=== PATIENT | female | born 1975 | race Caucasian/White ===

== ENCOUNTER 2020-07-22 09:07 | Outpatient (CLI) | payer OTHER, BC, SELFPAY ==
[2020-07-22 09:31] LABS: Hematocrit 37.8 % (37.0-47.0); Hemoglobin 11.9 g/dL (12.0-15.0)
== END 2020-07-22 09:08 | disposition home or self-care (01) ==
LOC: ANHSURGERY 09:13
PROVIDERS: Anesthesiology; PCP Family Medicine; Visit Provider Surgery Plastic and Reconstructive Surgery
DX: M79.3 Panniculitis, unspecified (principal); D64.9 Anemia, unspecified
CPT/HCPCS: 36415; 85014; 85018; 86850; 86900; 86901

== ENCOUNTER → 2020-07-26 00:08 | Outpatient (CLI) | payer OTHER, BC, SELFPAY ==
[2020-07-26 19:33] LABS: SARS-CoV-2 RNA PCR Negative
== END ==
PROVIDERS: PCP Family Medicine; Visit Provider Surgery Plastic and Reconstructive Surgery
DX: Z01.812 Encounter for preprocedural laboratory examination (principal); Z20.822 Contact with and (suspected) exposure to COVID-19
CPT/HCPCS: C9803; U0003; U0005

== ENCOUNTER 2020-07-29 01:18 | Day surgery (SDC) | payer OTHER, BC, SELFPAY ==
[2020-07-21 15:20] VITALS: BMI 35.7
[2020-07-29] VITALS (11 sets, daily range): BP systolic 118–161; BP diastolic 60–93; PULSE 61–99; RESP 14–19; TEMP 36.4–37.2; O2SAT 94–100; BMI 35.9
--- NOTE | 2020-07-29 05:54 | ECG_ITS ---
Measurements Intervals [place] Rate: 62 P: 16 NH: 138 QRS: 25 QRSD: 85 T: 32 QT: 432 QTc: 439 Interpretive Statements SINUS RHYTHM WITH SINUS ARRHYTHMIA NORMAL ECG Electronically Signed On 07-29-2020 8:26:21 DECAL CUTTER by Ivan Toro D.O.
[2020-07-29] MEDS: LACTATED RINGERS 1,000 ML 30 ML IV CONT ×2 (06:44→09:27)
[2020-07-29 06:49] LABS: Urine Cotinine NEGATIVE
--- NOTE | 2020-07-29 06:49 | WPDHPUPDATE1 ---
History and Physical Update Update Date/Time: 07/29/20 06:49 History and Physical has been reviewed, including an updated exam of the patient. There are NO changes in the patient's condition. Risks, benefits, and alternatives have been discussed and questions answered. Patient agrees to proceed with procedure.
--- NOTE | 2020-07-29 06:56 | P.OP_ITS ---
Procedure Note - Detailed Date of procedure: 07/29/20 Pre-op diagnosis: panniculitis Post-op diagnosis: same Procedure performed: Panniculectomy Description of procedure: Preoperatively the risks, benefits, alternatives were discussed again today in extensive detail. I want her to be realistic about the risks involved as well as expectations. Compared and contrasted this versus an abdominoplasty so she was well informed that this is not a cosmetic procedure. All questions answered to her satisfaction and consent obtained. Standing position at thorough abdominal examination was completed. She was marked in the preoperative holding area. This was with her verification. She was taken to the operating room placed supine on the operating room table. Anesthesia provided by anesthesiology and prepped and draped in a standard steri le fashion. Surgical time-out was taken. A thorough abdominal examination again was completed this time supine. No hernias were palpable. Stab incisions were made and used a tumescent solution. Once adequate time for hemostasis a 10 blade used to make the lower incision. Dissection was continued taking wedge of this lower abdomen out. There is no evidence fascial violation or deep structure injury. I closed in many layers to obliterate all space using 2-0 Vicryl. I placed 10 Kamari drains bilateral which was sutured in place with 3-0 nylon. I then closed using a 3-0 strata fix and jareth. Dressings were placed. She was awoke and taken to the PACU without difficulty. All instrument sponge counts were correct at the end of the case. Anesthesia: GETA Surgeon: Rey Milian MD Estimated blood loss (mL): 50 Drains: Yes (Bilateral Kamari) Packing: No Pathology: none sent Complications: No immediate complications Condition: stable Disposition: PACU Findings: Tissue removed 2952 grams
--- NOTE | 2020-07-29 07:15 | WPDANESEPPF ---
Anes - Initial Pre Proc Eval Procedure: Operation Date: 07/29/20 07:30 Proposed Procedures p Panniculectomy - Rey Milian MD Date/Time: 07/29/20 07:15 Surgeon: Rey Milian MD Pre Op Diagnosis: panniculitis Patient Data Age: 45 Gender: F Height: 5 ft 7 in Weight: 104 kg Last Vital Signs Temp 97.9 F 07/29/20 06:28 Pulse 80 07/29/20 06:28 Resp 18 07/29/20 06:28 BP 151/92 H 07/29/20 06:28 Pulse Ox 100 07/29/20 06:28 Allergies Allergy/AdvReac Type Severity Reaction Status Date / Time avocado Allergy Unknown THROAT Verified 07/29/20 06:14 SWELLING luke Allergy Other Verified 07/29/20 06:14 hydrocodone AdvReac Mild Nausea and Verified 07/29/20 06:14 Vomiting propoxyphene AdvReac Mild Nausea and Verified 07/29/20 06:14 Vomiting oxycodone AdvReac Unknown Nausea and Verified 07/29/20 06:14 Vomiting Home Medications Medication Instructions Recorded Confirmed Type losartan 100 mg tablet 100 mg PO DAILY tablet 03/04/20 07/29/20 History metoprolol succinate 50 mg 50 mg PO DAILY 03/04/20 07/29/20 History tablet,extended release 24 hr ondansetron HCl 4 mg tablet 4 mg PO Q6H PRN #30 tablet 07/14/20 07/21/20 Rx tramadol 50 mg tablet 50 mg PO Q6H PRN #15 tablet 07/14/20 07/21/20 Rx Laboratory Tests 07/29/20 06:27 Cotinine Negative Patient hx anesthesia problems: post op nausea/vomiting Family hx anesthesia problems: none PMFSH Surgical History Surgical History History of delivery 2004, 2007, 2013 History of gastric surgery gastric sleeve 2017 History of hernia repair double - 2014 History of hysterectomy 2018 History of tonsillectomy 5th grade Family History Family History Father Hypertension Mother History of cancer Sibling Hypertension Other Asthma Diabetes mellitus Family history of cardiovascular disease Family history of malignant neoplasm Social History Social History Smoking status: Never smoker Alcohol intake: current Substance use: never Substance use type: does not use Living arrangements: with family Spiritual care concerns: No Anes - Eval Final PreProcedure Day of Procedure 07/29/20 07:15 Patient weight: obese Heart: regular rate and rhythm Lungs: clear to auscultation Airway: Mallampati scale class II Neurological: alert and oriented Last oral intake: >/= 8 hours ASA classification: III Emergent: no Anesthetic plan: proceed Anesthesia type and monitoring: general ETT and standard monitoring Informed Consent: The patient's anesthetic plan and its attendant risks and benefits were discussed with the patient/family/POA. Questions were solicited and answers provided to the satisfaction of the patient/family/POA.
[2020-07-29] MEDS: SCOPOLAMINE 1.5 MG PATCH TRANSDERM (07:22)
[2020-07-29] MEDS: ceFAZolin 2 GM/D5W 50 ML 2 GM/50 ML BAG IVPB (07:31)
--- NOTE | 2020-07-29 09:09 | SUR.OPER ---
EBL 50ml
--- NOTE | 2020-07-29 09:46 | SUR.OPER ---
total tumescent used bag 1 1000ml, bag 2 277ml.
[2020-07-29] MEDS: MORPHINE SULFATE (*CRX) 2 MG/ML INJ IV PUSH ×2 (10:44→17:59)
[2020-07-29] MEDS: LACTATED RINGERS 1,000 ML 125 ML IV CONT (10:47)
[2020-07-29] MEDS: traMADol HCL (*CRX) 50 MG TABLET PO ×3 (11:28→21:45)
[2020-07-29] MEDS: DOCUSATE SODIUM 100 MG CAPSULE PO (21:45)
[2020-07-30] VITALS: BP 117/76; PULSE 65; RESP 18; TEMP 37.1; O2SAT 98
[2020-07-30] MEDS: traMADol HCL (*CRX) 50 MG TABLET PO ×2 (03:44→08:34)
[2020-07-30 03:45] VITALS: BP 151/90; PULSE 72; RESP 20; TEMP 36.9; O2SAT 99
--- NOTE | 2020-07-30 07:15 | WPDPN ---
Progress Note: A&P Assessment and Plan (1) Panniculitis: Code(s): M79.3 - Panniculitis, unspecified Status: Acute Assessment and Plan: Will discharge home. We will see her back. She is going to keep us updated with her drain outputs. Today we spent extensive time going over the care. What monitor for. Answering all of her questions to her satisfaction. (2) History of gastric surgery: Code(s): Z98.890 - Other specified postprocedural states Status: Acute Review of Systems Review of Systems: All systems reviewed & are unremarkable except as noted in HPI and below Exam Narrative: Exam Narrative: Abdomen is doing well. No signs of infection. No hematoma. No seroma. Drains are becoming serosanguineous. No calf tenderness. Negative Homans. Const: General: comfortable, no acute distress, alert and awake; No acute distress Orientation/consciousness: oriented to person HENMT: Head: normal to inspection Resp: Effort & Inspection: normal respiratory effort and able to speak in complete sentences Neuro: General: oriented to person Psych: Appearance: grossly normal Mental Status: mental status grossly normal Objective Data Vital Signs Vital Signs: Vital Signs - 24 hr 07/29/20 09:26 07/29/20 09:41 07/29/20 09:56 Temperature 36.4 C Pulse Rate 99 84 84 Respiratory Rate 19 17 17 Blood Pressure 158/88 H 161/92 H 160/91 H Pulse Oximetry 100 100 97 07/29/20 10:11 07/29/20 10:35 07/29/20 10:45 Temperature 36.6 C Pulse Rate 73 75 Respiratory Rate 17 18 Blood Pressure 154/93 H 133/79 Pulse Oximetry 95 94 97 07/29/20 12:20 07/29/20 13:00 07/29/20 16:30 Temperature 37.2 C 36.5 C Pulse Rate 61 67 Respiratory Rate 18 14 Blood Pressure 121/79 118/60 Pulse Oximetry 97 97 97 07/29/20 19:00 07/30/20 00:00 07/30/20 03:45 Temperature 36.7 C 37.1 C 36.9 C Pulse Rate 70 65 72 Respiratory Rate 18 18 20 Blood Pressure 118/75 117/76 151/90 H Pulse Oximetry 96 98 99 Intake/Output Intake/Output: Intake & Output 02/2307/28/20 07/29/20 07/30/20 23:59 23:59 23:59 23:59 Intake Total 1870 600 Output Total 178 1700 Balance 82 -1100 Meds/Results Medications: Active Medications Generic Name Dose Route Start Last Admin Trade Name Freq PRN Reason Stop Dose Admin Docusate Sodium 100 mg 07/29/20 21:00 07/29/20 21:45 Docusate Sodium 100 Mg Capsule PO 100 mg Q12HR BLANCO Administration Enoxaparin Sodium 40 mg 07/30/20 09:00 Enoxaparin 40 Mg/0.4 Ml Syringe SUB-Q DAILY [facility] Losartan Potassium 100 mg 07/30/20 09:00 Losartan Potassium 100 Mg Tablet PO DAILY [facility] Metoprolol Succinate 50 mg 07/30/20 09:00 Metoprolol Succinate Ext Rel 50 Mg Tabcr PO DAILY [facility] Morphine Sulfate 2 mg 07/29/20 09:12 07/29/20 17:59 Morphine Sulfate (*Crx) 2 Mg/Ml Inj IV PUSH 2 mg Q2H PRN Administration Pain Ondansetron HCl 4 mg 07/29/20 09:12 Ondansetron Inj 4 Mg/2 Ml Vial IV PUSH Q6H PRN Nausea Tramadol HCl 50 mg 07/29/20 09:13 07/30/20 03:44 Tramadol Hcl (*Crx) 50 Mg Tablet PO 50 mg Q4H PRN Administration Pain Rated 4-6 Subjective Date/time seen: 07/30/20 07:15 She states that she is doing very well today. Pain controlled. No fevers or chills. No nausea vomiting. No shortness of breath. No calf tenderness.
--- NOTE | 2020-07-30 07:19 | PM.DS ---
DS: Admitting Diagnosis Admitting Diagnosis Admitting Diagnosis: Panniculitis DS: Discharge Diagnosis Discharge Diagnosis (1) Panniculitis: Code(s): M79.3 - Panniculitis, unspecified Status: Acute DS: Summary Hospital Course Hospital Course: Patient underwent panniculectomy uneventfully. She was kept overnight for pain control. He has done very well. She is ambulating. Tolerating regular diet. Pain controlled. She has elected to use ambulation at home for DVT prophylaxis. We will see her back. She is going to keep us updated with her drain outputs. Time Spent with Patient Time attestation: Total time spent providing and/or coordinating discharge services: Exam Narrative: Exam Narrative: Abdomen is doing well. No signs of infection. No hematoma. No seroma. Drains are becoming serosanguineous. No calf tenderness. Negative Homans. Const: General: comfortable, no acute distress, alert and awake; No acute distress Orientation/consciousness: oriented to person HENMT: Head: normal to inspection Resp: Effort & Inspection: normal respiratory effort and able to speak in complete sentences Neuro: General: oriented to person Psych: Appearance: grossly normal Mental Status: mental status grossly normal Discharge Plan Discharge Patient Disposition: Home, Self-Care Discharge Instructions: POST OPERATIVE DISCHARGE INSTRUCTIONS REY MILIAN M.D. [facility] [address] [facility] [address] [address] [place] [address] [address] for 24 hours after anesthesia and while you are taking pain medication. Take all prescribed medication as directed Diet as tolerated. No lifting or activity that raises blood pressure for 48 hours. Regular walking / ambulation. No showering until directed to. Once you shower do not take pain medication before showering as the combination of medication and heat may cause you to feel dizzy or pass out. No pools or tubs for 2 weeks. Call with any questions or concerns. Dressing Care: May wash the area. Drain care. Dry dressing daily for comfort. Please keep us updated regularly with drain outputs. If you have any questions or concerns, please call the office . If it is after hours you will be directed to the fire prevention specialist exchange. Shortness of breath, chest pain, or other medical emergency dial 911 / proceed to the Emergency Room. Remove the Scopolamine patch that was placed behind your ear in 72 hours or less. Wash your hands after touching. Patient Instructions: [facility] Forms: General Discharge Instructions Follow-up/Referrals: Rey Milian MD [Physician] - 2 Weeks Discharge Medications: Continued losartan 100 mg tablet 100 mg PO DAILY RF: 0 metoprolol succinate 50 mg tablet extended release 24 hr 50 mg PO DAILY RF: 0 ondansetron HCl [Zofran] 4 mg tablet 4 mg PO Q6H PRN (Reason: nausea and vomiting) Qty: 30 RF: 0 tramadol [Ultram] 50 mg tablet 50 mg PO Q6H PRN (Reason: pain) Qty: 15 RF: 0
[2020-07-30 07:35] VITALS: BP 113/69; PULSE 69; RESP 16; TEMP 37.6; O2SAT 98
[2020-07-30] MEDS: DOCUSATE SODIUM 100 MG CAPSULE PO (08:34)
[2020-07-30] MEDS: ENOXAPARIN 40 MG/0.4 ML SYRINGE SUB-Q (08:35)
[2020-07-30] MEDS: METOPROLOL SUCCINATE EXT REL 50 MG TABCR PO (08:37)
[2020-07-30] MEDS: LOSARTAN POTASSIUM 100 MG TABLET PO (08:37)
--- NOTE | 2020-07-30 10:00 | PC.NURSE ---
Patient sent home with extra supplies. Larger abdominal binder and 4x4's sent for justus drain dressing changes.
== END 2020-07-30 10:08 | disposition home or self-care (01) ==
LOC: ANHSURGERY 06:59 → ANHOB2 10:32
PROVIDERS: PCP Family Medicine; Visit Provider Surgery Plastic and Reconstructive Surgery
PROC: 0JB80ZZ Excision of Abdomen Subcutaneous Tissue and Fascia, Open Approach (ICD-10-PCS; CPT 15830; principal; 2020-07-29 07:30)
DX: M79.3 Panniculitis, unspecified (principal); E66.9 Obesity, unspecified; Z68.35 Body mass index [BMI] 35.0-35.9, adult; Z98.84 Bariatric surgery status; I10 Essential (primary) hypertension; E78.00 Pure hypercholesterolemia, unspecified; Z79.899 Other long term (current) drug therapy
CPT/HCPCS: 15830; 80307; 93005; 99199; A9270; C9803; J0171; J0690; J1170; J1650; J2250; J2270; J2405; J2704; J3010; J7120; U0003; U0005

== ENCOUNTER 2021-02-20 08:34 | Outpatient (CLI) | payer OTHER, SELFPAY ==
[2021-02-20 08:53] LABS: Hematocrit 37.3 % (35.0-49.0); Hemoglobin 11.5 g/dL (12.0-15.0); Mean Corpuscular HGB Conc 30.8 g/dL (32.0-36.0); Mean Corpuscular Hemoglobin 24.3 pg (27.0-31.0); Mean Corpuscular Volume 78.9 fL (78.0-102.0); Mean Platelet Volume 9.5 fl (9.2-11.8); Platelet Count Result 181 K/mm3 (150-420); Red Blood Count 4.73 M/mm3 (4.20-5.40); Red Cell Distribution Width 16.1 % (11.6-14.4); White Blood Count 5.9 K/mm3 (4.8-10.8)
[2021-02-20 09:33] LABS: Alanine Aminotransferase 20 U/L (14-59); Albumin Level 3.4 g/dL (3.4-5.0); Alkaline Phosphatase 80 U/L (46-116); Anion Gap 10 mmol/L (8-16); Aspartate Amino Transferase 14 U/L (15-37); Bilirubin,Total 0.5 mg/dL (0.00-1.00); Blood Urea Nitrogen 10 mg/dL (7-18); Calcium 8.3 mg/dL (8.5-10.1); Carbon Dioxide 27 mmol/L (21-32); Chloride 104 mmol/L (98-108); Cholesterol 167 mg/dL (0-200); Estimated Glomerular Filt Rate > 60; Glucose 107 mg/dL (70-99); HDL Direct 52 mg/dL (40-60); LDL Cholesterol Calculated 86 mg/dL (<130); NT Pro B Type Natriuretic Pept 95 pg/mL (0-125); Osmolality Calculated 291 mOsm/kg (285-295); Sodium 141 mmol/L (136-145); Thyroid Stimulating Hormone 0.68 uIU/mL (0.36-3.74); Total Protein 6.8 g/dL (6.4-8.2); Triglycerides 144 mg/dL (0-150)
== END 2021-02-20 08:35 | disposition home or self-care (01) ==
LOC: CHSLAB 08:37
PROVIDERS: PCP Nurse Practitioner Psychiatric/Mental Health; Visit Provider Family Medicine
DX: R60.0 Localized edema (principal)
CPT/HCPCS: 36415; 80053; 80061; 83880; 84443; 85027

== ENCOUNTER 2021-05-26 07:56 | Outpatient (CLI) | payer OTHER, SELFPAY ==
--- NOTE | ~2021-05-26 | MM_ITS ---
EXAMINATION: MM screening roxanna BI w carie HISTORY: Screening mammogram, family history of breast cancer in her mother. TECHNIQUE: Craniocaudal and mediolateral oblique 3-D tomosynthesis images were obtained and synthetic 2-D images were generated. CAD analysis was submitted and interpreted. COMPARISON: 08/14/2018, 05/01/2017 BREAST PARENCHYMAL COMPOSITION: The breasts are heterogeneously dense, which may obscure small masses . FINDINGS: RIGHT BREAST: Asymmetry is present in the posterior third of the upper outer quadrant of the breast o n the mediolateral oblique view. LEFT BREAST: There is no evidence of suspicious mass, calcification, or architectural distortion to s uggest malignancy. There has been no significant interval change. IMPRESSION: 1. Right breast asymmetry. 2. Additional mammographic views and possible breast ultrasound are recommended. BI-RADS Category 0: Incomplete: Needs additional imaging evaluation. Reviewed, dictated and finalized at location A. CTOR CPG IMPRESSION: 1. Right breast asymmetry. 2. Additional mammographic views and possible breast ultrasound are recommended . BI-RADS Category 0: Incomplete: Needs additional imaging evaluation.
== END 2021-05-26 07:57 | disposition home or self-care (01) ==
LOC: CHSIMG 07:57
PROVIDERS: PCP Family Medicine; Visit Provider Obstetrics & Gynecology
DX: Z12.31 Encounter for screening mammogram for malignant neoplasm of breast (principal)
CPT/HCPCS: 77063; 77067

== ENCOUNTER 2021-05-31 09:58 | Outpatient (CLI) | payer OTHER, BC, SELFPAY ==
--- NOTE | ~2021-05-31 | MMUS_ITS ---
EXAMINATION: MM diagnostic roxanna RT w carie, US breast RT limited HISTORY: Follow-up right breast asymmetry TECHNIQUE: Additional 3-D tomosynthesis images of the right breast were performed and synthetic 2-D i mages were generated. CAD analysis was submitted and interpreted. High resolution Limited right breas t ultrasound was performed. COMPARISON: 05/26/2021 BREAST PARENCHYMAL COMPOSITION: The breasts are extremely dense, which lowers the sensitivity of mamm ography. FINDINGS: MAMMOGRAPHIC FINDINGS: There are no suspicious masses, calcifications or architectural distortion in the right breast to sug gest malignancy. ULTRASOUND: Limited right breast ultrasound: At 9:00 near the nipple there is an oval hypoechoic mass with echoge gerardo hilum measuring 5 x 4 x 3 mm, likely benign intramammary lymph node. At 12:00, 5 cm from the nipp le there is a cluster of microcysts measuring 5 mm in aggregate. There are multiple additional cysts scattered throughout the left breast. IMPRESSION: 1. Probable benign left breast mass at 9:00 near the nipple and 12:00, 5 cm from the nipple by ultras ound. 2. Recommend 6 month follow-up Limited left breast ultrasound BI-RADS category 3, probably benign findings. Reviewed, dictated and finalized at location A. LE DIST[employer]BUTION CONSULTANT IMPRESSION: 1. Probable benign left breast mass at 9:00 near the nipple and 12:00, 5 cm fro m the nipple by ultrasound. 2. Recommend 6 month follow-up Limited left breast ultrasound BI-RADS category 3, probably benign findings.
== END 2021-05-31 09:59 | disposition home or self-care (01) ==
LOC: CHSIMG 10:03
PROVIDERS: PCP Family Medicine; Visit Provider Obstetrics & Gynecology
DX: R92.8 Other abnormal and inconclusive findings on diagnostic imaging of breast (principal)
CPT/HCPCS: 76642; 77061; 77065; G0279

== ENCOUNTER 2021-10-28 10:44 | Outpatient (CLI) | payer OTHER, BC, SELFPAY ==
--- NOTE | ~2021-10-28 | US_ITS ---
US breast RT limited DATE: 10/28/2021 11:08 INDICATION: Six-month follow-up of probable benign left 9:00 and 12:00 masses TECHNIQUE: Real-time and color flow imaging and Doppler analysis targeted at the previously reported masses at 9:00 and 12:00 COMPARISON: 05/23/2021 diagnostic right mammogram and limited right breast ultrasound 05/26/2021 bilateral screening mammogram FINDINGS: 9:00 near nipple: Stable parallel circumscribed hypoechoic lesion measuring approximately 3 x 5 mm on both the current and 05/23/2021 sonographic examinations. 12:00 5 cm from nipple: 6.4 x 4.4 x 5.8 mm parallel circumscribed heterogeneous hypoechoic lesion wit hout internal vascularity or posterior shadowing appears stable in size, shape and echotexture since 05/31/2021. 12:00 1 cm from nipple:. New 2.5 x 2.9 mm hypoechoic area without internal vascularity or posterior s hadowing. IMPRESSION: Probable benign findings Recommendation: Bilateral diagnostic mammogram and right breast ultrasound follow-up in 6 months. BI-RADS Category 3: Probably benign Reviewed, dictated and finalized at Location [facility]. Reviewed, dictated and finalized at location A. IMPRESSION: Probable benign findings Recommendation: Bilateral diagnostic mammogram and right breast ultrasound foll ow-up in 6 months. BI-RADS Category 3: Probably benign
== END 2021-10-28 10:45 | disposition home or self-care (01) ==
LOC: CHSIMG 10:46
PROVIDERS: PCP Family Medicine; Visit Provider Obstetrics & Gynecology
DX: R92.8 Other abnormal and inconclusive findings on diagnostic imaging of breast (principal)
CPT/HCPCS: 76642

== ENCOUNTER 2022-04-13 08:26 | Outpatient (CLI) | payer OTHER, SELFPAY ==
--- NOTE | ~2022-04-13 | MMUS_ITS ---
EXAMINATION: MM diagnostic roxanna BI w carie, US breast BI complete HISTORY: Six-month follow-up TECHNIQUE: Bilateral ML, MLO and CC full field and spot 3-D tomosynthesis images were performed and s ynthetic 2-D images were generated. CAD analysis was submitted and interpreted. High resolution compl ete bilateral breast ultrasound was performed. COMPARISON: 10/28/2021 Limited right breast ultrasound 05/31/2021 diagnostic right mammogram and limited right breast ultrasound 05/26/2021, 08/14/2018, 05/01/2017 bilateral screening mammogram examinations BREAST PARENCHYMAL COMPOSITION: The breasts are heterogeneously dense, which may obscure small masses . FINDINGS: MAMMOGRAPHIC FINDINGS: Numerous benign calcifications are scattered in both breasts. Diffuse No suspicious mass or siebel architect ural distortion, malignant calcification, skin thickening or retraction or significant new or develop ing density is detected. ULTRASOUND: No suspicious mass or shadowing of either breast is detected. On the right at 9:00 near the nipple there is a 4.5 x 3.4 x 2.8 mm cyst with through transmission pos terior enhancement. On the right at 12:00 5 cm from the nipple there is a parallel circumscribed hypo echoic 6.6 x 6.7 x 4.2 mm lesion without internal vascularity or suspicious shadowing. IMPRESSION: 1. Benign findings 2. Routine annual mammographic screening is recommended BI-RADS Category 2: Benign finding(s). Reviewed, dictated and finalized at location A. [employer]OR PLANT CARETAKER IMPRESSION: 1. Benign findings 2. Routine annual mammographic screening is recommended BI-RADS Category 2: Benign finding(s).
[2022-04-13 08:44] LABS: Basophils Absolute Auto 0.02 K/mm3 (0.00-0.10); Basophils Percent Auto 0.3 % (0.0-1.0); Eosinophils Absolute Auto 0.28 K/mm3 (0.02-0.50); Eosinophils Percent Auto 4.8 % (1.0-6.0); Hematocrit 38.6 % (35.0-49.0); Hemoglobin 12.2 g/dL (12.0-15.0); Immature Granulocyte Absolute 0.02 K/mm3 (0.00-0.00); Immature Granulocyte Percent A 0.3 % (0.0-0.0); Lymphocytes Percent Auto 37.7 % (18.0-42.0); Mean Corpuscular HGB Conc 31.6 g/dL (32.0-36.0); Mean Corpuscular Hemoglobin 26.8 pg (27.0-31.0); Mean Corpuscular Volume 84.8 fL (78.0-102.0); Mean Platelet Volume 9.5 fl (9.2-11.8); Monocytes Absolute Auto 0.36 K/mm3 (0.10-0.90); Monocytes Percent Auto 6.2 % (2.0-11.0); Neutrophils Percent Auto 50.7 % (50.0-70.0); Platelet Count Result 181 K/mm3 (150-420); Red Blood Count 4.55 M/mm3 (4.20-5.40); Red Cell Distribution Width 14.1 % (11.6-14.4); White Blood Count 5.8 K/mm3 (4.8-10.8)
[2022-04-13 09:15] LABS: Alanine Aminotransferase 16 U/L (14-59); Albumin Level 3.3 g/dL (3.4-5.0); Alkaline Phosphatase 78 U/L (46-116); Anion Gap 7 mmol/L (8-16); Aspartate Amino Transferase 11 U/L (15-37); Bilirubin,Total 0.5 mg/dL (0.00-1.00); Blood Urea Nitrogen 14 mg/dL (7-18); Calcium 8.4 mg/dL (8.5-10.1); Carbon Dioxide 27 mmol/L (21-32); Chloride 106 mmol/L (98-108); Cholesterol 162 mg/dL (0-200); Estimated Glomerular Filt Rate > 60; Glucose 113 mg/dL (70-99); HDL Direct 49 mg/dL (40-60); LDL Cholesterol Calculated 88 mg/dL (<130); NT Pro B Type Natriuretic Pept 38 pg/mL (0-125); Osmolality Calculated 291 mOsm/kg (285-295); Sodium 140 mmol/L (136-145); Thyroid Stimulating Hormone 1.13 uIU/mL (0.36-3.74); Triglycerides 126 mg/dL (0-150)
== END 2022-04-13 08:27 | disposition home or self-care (01) ==
LOC: CHSIMG 08:32
PROVIDERS: PCP Family Medicine; Visit Provider Family Medicine
DX: R92.8 Other abnormal and inconclusive findings on diagnostic imaging of breast (principal); R60.0 Localized edema
CPT/HCPCS: 36415; 76641; 77062; 77066; 80053; 80061; 83880; 84443; 85025; G0279

== ENCOUNTER 2023-01-13 19:24 | Emergency (ER) | payer OTHER, SELFPAY ==
--- NOTE | ~2023-01-13 | CT_ITS ---
EXAMINATION: CT abdomen pelvis wo con DATE: 01/13/2023 19:45 INDICATION: Right flank pain. TECHNIQUE: Computed tomography (CT) of the abdomen and pelvis was performed without intravenous contr ast. Automated exposure control and iterative reconstruction technique were employed. The dose-length product was 488.81 mGy-cm. COMPARISON: CT abdomen and pelvis 02/16/2009 FINDINGS: The visualized portions of the lung bases demonstrate are clear without pneumonia or pleura l effusion. The heart size is normal. No pericardial effusion. A calcification in the liver is consis tent with old granulomatous disease. The gallbladder, spleen, pancreas, and adrenal glands are normal . Right kidney is normal. There are 4 stones in left kidney measuring up to 4 mm. The appendix is nor mal. There are no dilated loops of bowel. There are changes of gastric sleeve procedure. There are no pathologically enlarged lymph nodes. There is no ascites. There is an umbilical hernia containing fa t. There is mild thoracic and lumbar spondylosis. IMPRESSION: 1. Umbilical hernia containing fat. Reviewed, dictated and finalized at location E.
[2023-01-13 19:29] VITALS: BP 187/119; PULSE 78; RESP 18; TEMP 36.7; O2SAT 98
--- NOTE | 2023-01-13 19:29 | ED.FEMALEGU ---
HPI - Female Genitourinary General Chief complaint: Back Pain/Injury Stated complaint: Lower Flank Pain Time Seen by Provider: 01/13/23 19:27 Source: patient Mode of arrival: ambulatory Limitations: no limitations History of Present Illness HPI Narrative: Patient is a 47-year-old female with right flank and back pain for the past week. She presents today due to the fact there is now some nausea and just general malaise and not feeling well associated with the right back pain that is getting somewhat worse at this time. Patient has had prior kidney stones and this feels very similar in nature. Pertinent past history: recurrent UTIs and pyelonephritis Onset (ago): week(s) (1) Severity scale (1-10): 7 Quality of pain: cramping and sharp Consistency: constant Vaginal discharge: none Vaginal bleeding: none Exacerbating factors: none Relieving factors: none Associated symptoms: nausea Treatment prior to arrival: none Related Data Home Medications Medication Instructions Recorded Confirmed losartan 100 mg tablet 100 mg PO DAILY 03/04/20 01/13/23 metoprolol succinate 50 mg 50 mg PO DAILY 03/04/20 01/13/23 tablet,extended release 24 hr tramadol 50 mg tablet 50 mg PO Q4H PRN Pain 01/13/23 01/13/23 Allergies Allergy/AdvReac Type Severity Reaction Status Date / Time avocado Allergy Unknown THROAT Verified 09/20/20 15:25 SWELLING luke Allergy Other Verified 09/20/20 15:25 hydrocodone AdvReac Mild Nausea and Verified 09/20/20 15:25 Vomiting propoxyphene AdvReac Mild Nausea and Verified 09/20/20 15:25 Vomiting oxycodone AdvReac Unknown Nausea and Verified 09/20/20 15:25 Vomiting Review of Systems Review of Systems: All systems reviewed & are unremarkable except as noted in HPI and below Constitutional: Constitutional: Reports no additional constitutional complaints Eyes: Eyes: Reports no additional eye complaints ENT: Reports system reviewed and no additional complaints, except as documented Cardiovascular: Cardiovascular: Reports no additional cardiovascular complaints Respiratory: Respiratory: Reports no additional respiratory complaints Gastrointestinal: Gastrointestinal: Reports no additional gastrointestinal complaints Genitourinary: Genitourinary: Reports no additional female genitourinary complaints Musculoskeletal: Musculoskeletal: Reports no additional musculoskeletal complaints Integumentary/Breasts: Skin/Breast: Reports system reviewed and no additional complaints, except as docu Neurologic: Reports system reviewed and no additional complaints, except as documented Psychiatric: Psychiatric: Reports no additional psychiatric complaints Endocrine: Endocrine: Reports no additional endocrine complaints Hematologic/Lymphatic: Hematologic/Lymphatic: Reports no additional hematologic/lymphatic complaints Allergic/Immunologic: Allergic/Immunologic: Reports no additional allergic/immunologic complaints PMFSH Surgical History Surgical History History of delivery 2004, 2006, 2012 History of gastric surgery gastric sleeve 2017 History of hernia repair double - 2014 History of hysterectomy 2018 History of tonsillectomy 5th grade S/P panniculectomy Family History Family History Father Hypertension Mother History of cancer Sibling Hypertension Other Asthma Diabetes mellitus Family history of cardiovascular disease Family history of malignant neoplasm Social History Social History Smoking status: Never smoker Alcohol intake: current Alcohol use details: social Substance use: never Substance use type: does not use Living arrangements: with family Spiritual care concerns: No Exam Const: General: healthy appearing Nutritional Appearance: well nourished Orientation/consc
[2023-01-13 19:43] LABS: Pregnancy On Board Control Positive; Urine Pregnancy Test Negative
[2023-01-13 19:56] LABS: Basophils Absolute Auto 0.03 K/mm3 (0.00-0.10); Basophils Percent Auto 0.4 % (0.0-1.0); Eosinophils Absolute Auto 0.33 K/mm3 (0.02-0.50); Eosinophils Percent Auto 4.4 % (1.0-6.0); Hematocrit 37.5 % (35.0-49.0); Hemoglobin 11.8 g/dL (12.0-15.0); Immature Granulocyte Absolute 0.04 K/mm3 (0.00-0.00); Immature Granulocyte Percent A 0.5 % (0.0-0.0); Lymphocytes Percent Auto 38.7 % (18.0-42.0); Mean Corpuscular HGB Conc 31.5 g/dL (32.0-36.0); Mean Corpuscular Hemoglobin 27.3 pg (27.0-31.0); Mean Corpuscular Volume 86.6 fL (78.0-102.0); Mean Platelet Volume 9.7 fl (9.2-11.8); Monocytes Absolute Auto 0.35 K/mm3 (0.10-0.90); Monocytes Percent Auto 4.7 % (2.0-11.0); Neutrophils Absolute Auto 3.8 K/mm3 (1.7-7.2); Neutrophils Percent Auto 51.3 % (50.0-70.0); Platelet Count Result 168 K/mm3 (150-420); Red Blood Count 4.33 M/mm3 (4.20-5.40); Red Cell Distribution Width 13.5 % (11.6-14.4); White Blood Count 7.5 K/mm3 (4.8-10.8)
[2023-01-13 19:57] VITALS: BP 160/93; PULSE 87; RESP 18; O2SAT 97
[2023-01-13 19:57] LABS: Bilirubin Urine Negative (Negative); Blood Urine Negative (Negative); Color Urine Light Yellow (Yellow); Glucose Urine UA Negative (Negative); Ketones Urine Negative (Negative); Leukocyte Esterase Ur 1+ LEU/UL (Negative); Nitrate Urine Negative (Negative); Protein Urine Negative (Negative); Specific Grav Ur 1.015 (1.010-1.020); Urobilinogen Urine 0.2 mg/dL (0.2-1.0)
[2023-01-13 20:03] LABS: Add Urine Microscopic? YES; Appearance Urine Slightly Cloudy (Clear); Bacteria Urine 1+ /hpf; Squamous Epithelial Cell Urine Many /hpf (Few)
[2023-01-13] MEDS: KETOROLAC (*BKC) 60 MG/2 ML VIAL IM (20:04)
[2023-01-13] MEDS: CEPHALEXIN 500 MG CAPSULE PO (20:10)
[2023-01-13 20:11] LABS: Alanine Aminotransferase 14 U/L (14-59); Albumin Level 3.1 g/dL (3.4-5.0); Alkaline Phosphatase 90 U/L (46-116); Anion Gap 8 mmol/L (8-16); Aspartate Amino Transferase 14 U/L (15-37); Bilirubin,Total 0.2 mg/dL (0.00-1.00); Blood Urea Nitrogen 12 mg/dL (7-18); Calcium 8.8 mg/dL (8.5-10.1); Carbon Dioxide 30 mmol/L (21-32); Chloride 103 mmol/L (98-108); Estimated CRCL calculation 68 ml/min; Estimated Glomerular Filt Rate 50; Glucose 123 mg/dL (70-99); Osmolality Calculated 292 mOsm/kg (285-295); Potassium 3.8 mmol/L (3.5-5.1); Sodium 141 mmol/L (136-145); Total Protein 6.7 g/dL (6.4-8.2)
[2023-01-13 20:21] VITALS: BP 150/86; PULSE 80; RESP 18; TEMP 36.9; O2SAT 99
--- NOTE | 2023-01-17 13:22 | PC.NURSE ---
FINAL URINE CULTURE RESULTS: ISOLATE 1 : 50,000-100,000 CFU/ML OF ESCHERICHIA COLI. NO FURTHER TX NEEDED PER C&S AND DR DALAL.
== END 2023-01-13 20:24 | disposition home or self-care (01) ==
PROVIDERS: Emergency Provider Emergency Medicine; PCP Family Medicine
DX: N30.00 Acute cystitis without hematuria (principal); Z79.891 Long term (current) use of opiate analgesic
CPT/HCPCS: 36415; 74176; 80053; 81001; 81025; 85025; 87077; 87086; 87088; 87186; 96372; 99284; A9270; J1885

== ENCOUNTER 2023-03-09 08:12 | Outpatient (CLI) | payer OTHER, SELFPAY ==
--- NOTE | ~2023-03-09 | US_ITS ---
EXAMINATION: US renal BI DATE: 03/09/2023 08:45 INDICATION: Renal stone TECHNIQUE: Multiple ultrasound grayscale images of the kidneys were obtained. COMPARISON: CT dated 01/13/2023 FINDINGS: The right kidney measures 10.8 x 5.3 x 5.7 cm. The left kidney measures 11.6 x 6.0 x 6.1 cm. There is normal renal cortical echogenicity with increased echogenicity of the renal medulla which can be see n with medullary sponge kidney. There are couple echogenic and shadowing stones in a lower pole calyx of the left kidney the larger measuring approximately 6 mm. There is no hydronephrosis in either kid idalia. The bladder is normal. IMPRESSION: 1. Nephrolithiasis of the lower pole of the left kidney. No hydronephrosis. 2. Increased echogenicity of the bilateral medullary pyramids suggestive of medullary sponge kidney b ut without evident associated medullary nephrocalcinosis on the prior CT. Reviewed, dictated and finalized at location A. IMPRESSION: 1. Nephrolithiasis of the lower pole of the left kidney. No hydronephrosis. 2. Increased echogenicity of the bilateral medullary pyramids suggestive of med ullary sponge kidney but without evident associated medullary nephrocalcinosis on the prior CT.
[2023-03-09 08:54] LABS: Appearance Urine Clear (Clear); Bilirubin Urine Negative (Negative); Blood Urine Negative (Negative); Color Urine Light Yellow (Yellow); Glucose Urine UA Negative (Negative); Ketones Urine Negative (Negative); Leukocyte Esterase Ur 2+ LEU/UL (Negative); Nitrate Urine Negative (Negative); Protein Urine Negative (Negative); Urobilinogen Urine 0.2 mg/dL (0.2-1.0)
[2023-03-09 09:01] LABS: Add Urine Microscopic? YES; Bacteria Urine Rare /hpf; RBC Urine 0-2 /hpf (0-2); Squamous Epithelial Cell Urine Few /hpf (Few)
[2023-03-09 09:03] LABS: Creatinine Urine 38.24 mg/dL (40-278); Total Protein Urine Random < 6.0 mg/dL (0.0-11.9); Ur Ttl Prot Creatinine Ratio 0.16 mg/mg (0-0.20)
[2023-03-09 09:21] LABS: Albumin Level 3.4 g/dL (3.4-5.0); Anion Gap 9 mmol/L (8-16); Blood Urea Nitrogen 10 mg/dL (7-18); Calcium 8.9 mg/dL (8.5-10.1); Carbon Dioxide 26 mmol/L (21-32); Chloride 103 mmol/L (98-108); Estimated Glomerular Filt Rate > 60; Glucose 114 mg/dL (70-99); Osmolality Calculated 286 mOsm/kg (285-295); Phosphorus 3.8 mg/dL (2.6-4.7); Potassium 4.1 mmol/L (3.5-5.1); Sodium 138 mmol/L (136-145)
== END 2023-03-09 08:13 | disposition home or self-care (01) ==
PROVIDERS: PCP Family Medicine; Visit Provider Internal Medicine Nephrology
DX: R79.89 Other specified abnormal findings of blood chemistry (principal); N20.0 Calculus of kidney
CPT/HCPCS: 36415; 76775; 80069; 81001; 82570; 84156; 87077; 87086; 87088; 87186

== ENCOUNTER 2023-05-17 06:21 | Day surgery (SDC) | payer OTHER, SELFPAY ==
[2023-05-17 07:09] VITALS: BP 120/88; PULSE 90; RESP 16; TEMP 36.6; O2SAT 100
[2023-05-17] MEDS: LACTATED RINGERS 1,000 ML 150 ML IV CONT (07:22)
--- NOTE | 2023-05-17 07:35 | WPDANESEPPF ---
Anes - Initial Pre Proc Eval Procedure: Operation Date: 05/17/23 08:30 Proposed Procedures p Screening Colonoscopy - Jerson Louis MD Date/Time: 05/17/23 07:35 Surgeon: Jerson Louis MD Pre Op Diagnosis: Neoplasm Screening Patient Data Age: 48 Gender: F Height: 1.73 m Weight: 110.4 kg Last Vital Signs Temp 36.6 C 05/17/23 07:09 Pulse 90 05/17/23 07:09 Resp 16 05/17/23 07:09 BP 120/88 05/17/23 07:09 Pulse Ox 100 05/17/23 07:09 O2 Del Method Room Air 05/17/23 07:09 Allergies Allergy/AdvReac Type Severity Reaction Status Date / Time avocado Allergy Unknown THROAT Verified 05/17/23 07:06 SWELLING luke Allergy Other Verified 05/17/23 07:06 hydrocodone AdvReac Mild Nausea and Verified 05/17/23 07:06 Vomiting propoxyphene AdvReac Mild Nausea and Verified 05/17/23 07:06 Vomiting oxycodone AdvReac Unknown Nausea and Verified 05/17/23 07:06 Vomiting Home Medications Medication Instructions Recorded Confirmed Type losartan 100 mg tablet 100 mg PO DAILY 03/04/20 05/17/23 History metoprolol succinate 50 mg 50 mg PO DAILY 03/04/20 05/17/23 History tablet,extended release 24 hr Daily Probiotic 1 tablet PO DAILY 05/01/23 05/17/23 History Patient hx anesthesia problems: none Family hx anesthesia problems: none Results Review: All pre-operative results and documents have been reviewed as part of the pre-operative evaluation. [facility] Past Medical History Medical History (Updated 05/17/23 @ 07:35 by Yasir Lara MD) High blood pressure High cholesterol Obesity Surgical History Surgical History History of delivery 2004, 2007, 2013 History of gastric surgery gastric sleeve 2017 History of hernia repair double - 2014 History of hysterectomy 2018 History of tonsillectomy 5th grade S/P panniculectomy Family History Family History Father Hypertension Mother History of cancer Sibling Hypertension Other Asthma Diabetes mellitus Family history of cardiovascular disease Family history of malignant neoplasm Social History Social History Smoking status: Never smoker Alcohol intake: current Alcohol use details: very rarely, 1x per month Substance use: never Substance use type: does not use Living arrangements: with family Occupation/Education: occupation Gender identity (if verbalized by the patient): Female Spiritual care concerns: No Anes - Eval Final PreProcedure Day of Procedure 05/17/23 07:35 Patient weight: obese Heart: regular rate and rhythm Lungs: clear to auscultation Airway: Mallampati scale class II Neurological: alert and oriented Last oral intake: >/= 8 hours ASA classification: II Emergent: no Anesthetic plan: proceed Anesthesia type and monitoring: general GIVS and standard monitoring Results Review: All pre-operative results and documents have been reviewed as part of the pre-operative evaluation. Informed Consent: The patient's anesthetic plan and its attendant risks and benefits were discussed with the patient/family/POA. Questions were solicited and answers provided to the satisfaction of the patient/family/POA.
--- NOTE | 2023-05-17 08:07 | PM.HPGS ---
History of Present Illness History of Present Illness Consent: Risks, benefits, and alternatives have been discussed and questions answered. Patient agrees to proceed with procedure. Chief complaint: Neoplasm Screening Narrative: Sophia Lindquist is a 48 year old female presents for screening colonoscopy. patient's current weight appetite is are normal. Patient denies abdominal pain. She has had no bleeding. Family history noncontributory. Review of Systems Review of Systems: Review of systems is noncontributory. [facility] Past Medical History Medical History (Updated 05/17/23 @ 08:10 by Jerson Louis MD) High blood pressure High cholesterol Obesity Surgical History Surgical History History of delivery 2004, 2006, 2012 History of gastric surgery gastric sleeve 2017 History of hernia repair double - 2014 History of hysterectomy 2018 History of tonsillectomy 5th grade S/P panniculectomy Family History Family History Father Hypertension Mother History of cancer Sibling Hypertension Other Asthma Diabetes mellitus Family history of cardiovascular disease Family history of malignant neoplasm Social History Social History Smoking status: Never smoker Alcohol intake: current Alcohol use details: very rarely, 1x per month Substance use: never Substance use type: does not use Living arrangements: with family Occupation/Education: occupation Gender identity (if verbalized by the patient): Female Spiritual care concerns: No Meds Home Medications and Allergies Home Medications Medication Instructions Recorded Confirmed Type losartan 100 mg tablet 100 mg PO DAILY 03/04/20 05/17/23 History metoprolol succinate 50 mg 50 mg PO DAILY 03/04/20 05/17/23 History tablet,extended release 24 hr Daily Probiotic 1 tablet PO DAILY 05/01/23 05/17/23 History Allergies Allergy/AdvReac Type Severity Reaction Status Date / Time avocado Allergy Unknown THROAT Verified 05/17/23 07:06 SWELLING luke Allergy Other Verified 05/17/23 07:06 hydrocodone AdvReac Mild Nausea and Verified 05/17/23 07:06 Vomiting propoxyphene AdvReac Mild Nausea and Verified 05/17/23 07:06 Vomiting oxycodone AdvReac Unknown Nausea and Verified 05/17/23 07:06 Vomiting Vital Signs Vital Signs - 24 hr 05/17/23 07:09 Temperature 97.9 F Pulse Rate 90 Respiratory Rate 16 Blood Pressure 120/88 Pulse Oximetry 100 Oxygen Delivery Room Air Exam Narrative: Physical exam reveals patient to be alert. Vital signs stable. HEENT exam is unremarkable. Patient is anicteric. Lungs are clear to auscultation and percussion. Heart is without murmur or extra sounds. Abdomen bowel sounds are present soft nontender with no organomegaly. Digital external rectal exam is normal. Assessment and Plan Assessment and plan (1) Encounter for screening colonoscopy: Code(s): Z12.11 - Encounter for screening for malignant neoplasm of colon Status: Acute Assessment and Plan: Patient presents today for screening colonoscopy. She appears to be at average risk for colon polyps.
[2023-05-17 09:04] VITALS: BP 134/84; PULSE 78; RESP 16; O2SAT 100
--- NOTE | 2023-05-17 09:11 | WPDANESPN ---
Anes - Prog Note Post-Op Date/Time: 05/17/23 09:11 Cardiovascular status: normal Respiratory status: normal Airway patency: baseline Mental status: baseline Post-Op hydration status: normal Vital Signs: Last Vital Signs Temp 36.6 C 05/17/23 07:09 Pulse 90 05/17/23 07:09 Resp 16 05/17/23 07:09 BP 120/88 05/17/23 07:09 Pulse Ox 100 05/17/23 07:09 O2 Del Method Room Air 05/17/23 07:09 Pain Score (VAS): 0/10 I/O: Intake & Output 05/16/23 05/17/23 05/17/23 23:59 07:59 15:59 Intake Total 400 Balance 400 Patient Feedback: Patient satisfied with anesthetic care.
[2023-05-17 09:14] VITALS: BP 136/82; PULSE 80; RESP 20; O2SAT 100
[2023-05-17 09:24] VITALS: BP 149/94; PULSE 82; RESP 20; O2SAT 100
== END 2023-05-17 09:32 | disposition home or self-care (01) ==
PROVIDERS: PCP Family Medicine; Visit Provider Internal Medicine Gastroenterology
PROC: 0DJD8ZZ Inspection of Lower Intestinal Tract, Via Natural or Artificial Opening Endoscopic (ICD-10-PCS; CPT 45378; principal; 2023-05-17 08:30)
DX: Z12.11 Encounter for screening for malignant neoplasm of colon (principal); K64.8 Other hemorrhoids
CPT/HCPCS: 45378

== ENCOUNTER 2023-12-28 12:42 | Outpatient (CLI) | payer OTHER, SELFPAY ==
--- NOTE | ~2023-12-28 | MM_ITS ---
EXAMINATION: MM screening roxanna BI w carie HISTORY: Screening TECHNIQUE: Craniocaudal and mediolateral oblique 3-D tomosynthesis images were obtained and synthetic 2-D images were generated. CAD analysis was submitted and interpreted. COMPARISON: Comparison to multiple prior studies sequentially, with oldest reviewed study dated 05/05. BREAST PARENCHYMAL COMPOSITION: Dense: The breasts are extremely dense, which lowers the sensitivity of mammography. FINDINGS: There is no evidence of suspicious mass, calcification, or architectural distortion to sugg est malignancy in either breast. There has been no suspicious interval change. IMPRESSION: 1. No mammographic evidence of malignancy. 2. Recommend routine screening mammography in one year. BI-RADS Category 1: Negative Reviewed, dictated and finalized at location B.
== END 2023-12-28 12:43 | disposition home or self-care (01) ==
PROVIDERS: PCP Family Medicine; Visit Provider Obstetrics & Gynecology
DX: Z12.31 Encounter for screening mammogram for malignant neoplasm of breast (principal)
CPT/HCPCS: 77063; 77067

== ENCOUNTER 2023-12-31 17:56 | Outpatient (CLI) | payer OTHER, SELFPAY ==
[2023-12-31 18:19] LABS: Basophils Absolute Auto 0.03 K/mm3 (0.00-0.10); Basophils Percent Auto 0.4 % (0.0-1.0); Eosinophils Absolute Auto 0.35 K/mm3 (0.02-0.50); Eosinophils Percent Auto 4.6 % (1.0-6.0); Hematocrit 39.5 % (35.0-49.0); Hemoglobin 12.8 g/dL (12.0-15.0); Immature Granulocyte Absolute 0.02 K/mm3 (0.00-0.00); Immature Granulocyte Percent A 0.3 % (0.0-0.0); Lymphocytes Percent Auto 41.7 % (18.0-42.0); Mean Corpuscular HGB Conc 32.4 g/dL (32-36); Mean Corpuscular Hemoglobin 27.1 pg (27.0-31.0); Mean Corpuscular Volume 83.7 fL (78.0-102.0); Mean Platelet Volume 9.3 fl (9.2-11.8); Monocytes Absolute Auto 0.41 K/mm3 (0.10-0.90); Monocytes Percent Auto 5.3 % (2.0-11.0); Neutrophils Absolute Auto 3.67 K/mm3 (1.70-7.20); Neutrophils Percent Auto 47.7 % (50.0-70.0); Platelet Count Result 185 K/mm3 (150-420); Red Blood Count 4.72 M/mm3 (4.20-5.40); Red Cell Distribution Width 13.4 % (11.6-14.4); White Blood Count 7.7 K/mm3 (4.8-10.8)
[2023-12-31 19:31] LABS: Hemoglobin A1C 7.1 % (<5.7)
[2023-12-31 19:58] LABS: Alanine Aminotransferase 23 U/L (14-59); Albumin Level 3.6 g/dL (3.4-5.0); Alkaline Phosphatase 107 U/L (46-116); Anion Gap 8 mmol/L (4-12); Aspartate Amino Transferase 17 U/L (15-37); Bilirubin,Total 0.2 mg/dL (0.00-1.00); Blood Urea Nitrogen 10 mg/dL (7-18); Calcium 8.7 mg/dL (8.5-10.1); Carbon Dioxide 29 mmol/L (21-32); Chloride 102 mmol/L (98-108); Estimated Glomerular Filt Rate > 60; Folic Acid 12.1 ng/mL (8.6->20); Free T4 Free Thyroxine 0.83 ng/dL (0.76-1.46); Glucose 162 mg/dL (70-99); Iron 32 ug/dL (50-170); Osmolality Calculated 291 mOsm/kg (285-295); Percent Iron Saturation 8 % (12-57); Potassium 4.1 mmol/L (3.5-5.1); Sodium 139 mmol/L (136-145); Thyroid Stimulating Hormone 1.02 uIU/mL (0.36-3.74); Vitamin B12 215 pg/mL (193-986)
[2024-01-03 02:29] LABS: FSH 5.6 mIU/mL
[2024-01-03 09:43] LABS: Total Triiodothyronine (T3) 98 ng/dL (76-181)
[2024-01-07 00:38] LABS: Estradiol, Ultrasensitive 90 pg/mL
== END 2023-12-31 17:57 | disposition home or self-care (01) ==
PROVIDERS: PCP Family Medicine; Visit Provider Family Medicine
DX: E66.2 Morbid (severe) obesity with alveolar hypoventilation (principal); N95.9 Unspecified menopausal and perimenopausal disorder; Z90.3 Acquired absence of stomach [part of]
CPT/HCPCS: 36415; 80053; 82607; 82670; 82746; 83001; 83036; 83540; 83550; 84439; 84443; 84480; 85025

== ENCOUNTER 2024-08-16 08:21 | Outpatient (CLI) | payer SELFPAY ==
[2024-08-16 09:18] LABS: Basophils Absolute Auto 0.03 K/mm3 (0.00-0.10); Basophils Percent Auto 0.5 % (0.0-1.0); Eosinophils Absolute Auto 0.32 K/mm3 (0.02-0.50); Eosinophils Percent Auto 5.7 % (1.0-6.0); Hematocrit 39.1 % (35.0-49.0); Hemoglobin 12.4 g/dL (12.0-15.0); Immature Granulocyte Absolute 0.02 K/mm3 (0.00-0.00); Immature Granulocyte Percent A 0.4 % (0.0-0.0); Lymphocytes Absolute Auto 2.31 K/mm3 (1.10-4.50); Lymphocytes Percent Auto 40.8 % (18.0-42.0); Mean Corpuscular HGB Conc 31.7 g/dL (32-36); Mean Corpuscular Volume 85.2 fL (78.0-102.0); Mean Platelet Volume 9.7 fl (9.2-11.8); Monocytes Absolute Auto 0.31 K/mm3 (0.10-0.90); Monocytes Percent Auto 5.5 % (2.0-11.0); Neutrophils Absolute Auto 2.67 K/mm3 (1.70-7.20); Neutrophils Percent Auto 47.1 % (50.0-70.0); Platelet Count Result 162 K/mm3 (150-420); Red Blood Count 4.59 M/mm3 (4.20-5.40); Red Cell Distribution Width 13.7 % (11.6-14.4); White Blood Count 5.7 K/mm3 (4.8-10.8)
[2024-08-16 09:30] LABS: Hemoglobin A1C 6.3 % (<5.7)
[2024-08-16 09:50] LABS: Alanine Aminotransferase 21 U/L (14-59); Albumin Level 3.3 g/dL (3.4-5.0); Alkaline Phosphatase 93 U/L (46-116); Anion Gap 11 mmol/L (4-12); Aspartate Amino Transferase 14 U/L (15-37); Bilirubin,Total 0.4 mg/dL (0.00-1.00); Blood Urea Nitrogen 11 mg/dL (7-18); Calcium 8.9 mg/dL (8.5-10.1); Carbon Dioxide 26 mmol/L (21-32); Chloride 104 mmol/L (98-108); Cholesterol 189 mg/dL (0-200); Estimated Glomerular Filt Rate > 60; Glucose 123 mg/dL (70-99); HDL Direct 61 mg/dL (40-60); Iron 70 ug/dL (50-170); LDL Cholesterol Calculated 89 mg/dL (<130); Magnesium 1.9 mg/dL (1.8-2.4); Osmolality Calculated 292 mOsm/kg (285-295); Percent Iron Saturation 17 % (12-57); Potassium 4.3 mmol/L (3.5-5.1); Sodium 141 mmol/L (136-145); Thyroid Stimulating Hormone 1.12 uIU/mL (0.36-3.74); Total Protein 6.7 g/dL (6.4-8.2); Triglycerides 193 mg/dL (0-150); Vitamin B12 202 pg/mL (193-986)
[2024-08-16 09:55] LABS: Folic Acid > 20.0 ng/mL (8.6->20)
[2024-08-18 14:53] LABS: Vitamin D 25 Hydroxy 25 ng/mL (30-100)
== END 2024-08-16 08:22 | disposition home or self-care (01) ==
LOC: CHSLAB 08:24
PROVIDERS: PCP Family Medicine; Visit Provider Family Medicine
DX: Z90.3 Acquired absence of stomach [part of] (principal); D50.9 Iron deficiency anemia, unspecified; Z13.220 Encounter for screening for lipoid disorders; E11.9 Type 2 diabetes mellitus without complications; I10 Essential (primary) hypertension
CPT/HCPCS: 36415; 80053; 80061; 82306; 82607; 82746; 83036; 83540; 83550; 83735; 84443; 85025

== ENCOUNTER 2025-01-09 14:05 | Outpatient (CLI) | payer OTHER, SELFPAY ==
[2025-01-09 15:12] LABS: Hematocrit 39.6 % (35.0-49.0); Hemoglobin 12.5 g/dL (12.0-15.0); Immature Granulocyte Percent A 0.4 % (0.0-0.0); Lymphocytes Absolute Auto 2.83 K/mm3 (1.10-4.50); Mean Corpuscular HGB Conc 31.6 g/dL (32-36); Mean Corpuscular Hemoglobin 27.4 pg (27.0-31.0); Mean Corpuscular Volume 86.8 fL (78.0-102.0); Nucleated Red Blood Cells Absolute Auto 0.00 K/mm3 (0.00-0.00); Nucleated Red Blood Cells Perc 0.0 % (0-0.0); Platelet Count Result 199 K/mm3 (150-420); Red Blood Count 4.56 M/mm3 (4.20-5.40); White Blood Count 7.8 K/mm3 (4.8-10.8)
[2025-01-09 15:29] LABS: Hemoglobin A1C 6.8 % (<5.7)
[2025-01-09 15:43] LABS: Alanine Aminotransferase 17 U/L (6-35); Albumin Level 4.2 g/dL (3.5-5.1); Alkaline Phosphatase 80 U/L (38-126); Anion Gap 5 mmol/L (4-12); Aspartate Amino Transferase 22 U/L (14-36); Bilirubin,Total 0.4 mg/dL (0.2-1.3); Blood Urea Nitrogen 9 mg/dL (7-17); Calcium 9.1 mg/dL (8.4-10.2); Carbon Dioxide 26 mmol/L (22-30); Chloride 108 mmol/L (98-107); Estimated Glomerular Filt Rate > 60; Glucose 127 mg/dL (65-110); Iron 43 ug/dL (37-170); Magnesium 2.0 mg/dL (1.6-2.3); Osmolality Calculated 288 mOsm/kg (285-295); Potassium 4.2 mmol/L (3.4-5.0); Sodium 139 mmol/L (137-145); Total Protein 6.7 g/dL (6.3-8.2)
[2025-01-09 15:52] LABS: Percent Iron Saturation 11 % (20-50)
[2025-01-09 16:15] LABS: Thyroid Stimulating Hormone 0.478 uIU/mL (0.465-4.680)
== END 2025-01-09 14:06 | disposition home or self-care (01) ==
PROVIDERS: PCP Family Medicine; Visit Provider Family Medicine
DX: D50.9 Iron deficiency anemia, unspecified (principal); I10 Essential (primary) hypertension; E11.9 Type 2 diabetes mellitus without complications
CPT/HCPCS: 36415; 80053; 83036; 83540; 83550; 83735; 84443; 85025

== ENCOUNTER 2025-01-19 16:04 | Outpatient (CLI) | payer OTHER, SELFPAY ==
--- NOTE | ~2025-01-19 | XR_ITS ---
EXAMINATION: XR chest 2V 01/19/2025 17:02 INDICATION: Pleuritic chest pain PROCEDURE: 2 view chest COMPARISON: No prior studies for comparison. FINDINGS: The lungs are clear. The cardiomediastinal silhouette is within normal limits. There are no pleural effusions. There is no pneumothorax suspected. IMPRESSION: 1: NO ACUTE CARDIOPULMONARY DISEASE. Reviewed, dictated and finalized at location A.
== END 2025-01-19 16:05 | disposition home or self-care (01) ==
LOC: CHSIMG 16:05
PROVIDERS: PCP Family Medicine; Visit Provider Family Medicine
DX: R07.81 Pleurodynia (principal)
CPT/HCPCS: 71046

== ENCOUNTER 2025-03-31 14:59 | Outpatient (CLI) | payer OTHER, SELFPAY ==
--- NOTE | ~2025-03-31 | MM_ITS ---
EXAMINATION: MM screening roxanna BI w carie HISTORY: Screening TECHNIQUE: Craniocaudal and mediolateral oblique 3-D tomosynthesis images were obtained and synthetic 2-D images were generated. CAD analysis was submitted and interpreted. COMPARISON: Comparison to multiple prior studies sequentially, with oldest reviewed study dated 05/26/2021. BREAST PARENCHYMAL COMPOSITION: Dense: The breasts are extremely dense, which lowers the sensitivity of mammography. FINDINGS: There is no evidence of suspicious mass, calcification, or architectural distortion to suggest malignancy in either breast. There has been no suspicious interval change. IMPRESSION: 1. No mammographic evidence of malignancy. 2. Recommend routine screening mammography in one year. BI-RADS Category 1: Negative Reviewed, dictated and finalized at location B.
== END 2025-03-31 15:00 | disposition home or self-care (01) ==
LOC: CHSIMG 14:59
PROVIDERS: PCP Family Medicine; Visit Provider Obstetrics & Gynecology
DX: Z12.31 Encounter for screening mammogram for malignant neoplasm of breast (principal)
CPT/HCPCS: 77063; 77067